=== PATIENT | male | born 1975 | race Caucasian/White ===

== ENCOUNTER → 2018-05-26 | Day surgery (SDC) | payer OTHER ==
[~2018-05-26] MED LIST: ASPI81TA50 PO; BUPIVACAINE MPF 0.5% 30 ML VIAL. ONE; LIDOCAINE (700MG/PATCH) PATCH. TD ONE; LIDOCAINE 1% PF 30 ML VIAL. ONE; MIDAZOLAM HCL PF 2 MG/2 ML VIAL. ONE; MONT10TA9 PO; OMEP40CA5 PO; PREG75CA PO; methylPREDNISolone ACETATE 40 MG/ML VIAL. ONE
[2018-05-26] MEDS: IV RINGERS SOLUTION,LACTATED 1,000 ML IV SCH ×2 (09:38→10:05)
[2018-05-26 11:33] VITALS: BP 118/79
== END | disposition home or self-care (01) ==
LOC: SURG 09:14
PROVIDERS: ATTEND Anesthesiology Pain Medicine
DX: M47.814 Spondylosis without myelopathy or radiculopathy, thoracic region (principal); K21.9 Gastro-esophageal reflux disease without esophagitis; J45.909 Unspecified asthma, uncomplicated; E11.9 Type 2 diabetes mellitus without complications; Z86.73 Personal history of transient ischemic attack (TIA), and cerebral infarction without residual deficits; Z79.82 Long term (current) use of aspirin; Z79.899 Other long term (current) drug therapy; Z98.52 Vasectomy status; Z98.890 Other specified postprocedural states; Z87.19 Personal history of other diseases of the digestive system; Z88.8 Allergy status to other drugs, medicaments and biological substances; Z79.84 Long term (current) use of oral hypoglycemic drugs
CPT/HCPCS: 64633; 64634; 82947; J1030; J2001; J2250; J3010; J3490; J7120; 99152